=== PATIENT | male | born 1965 | race Caucasian/White ===

== ENCOUNTER → 2020-04-15 | Outpatient (CLI) | payer OTHER ==
[2020-04-15 17:06] LABS: ABSOLUTE NEUTROPHILS 5.7 thou/uL (1.4-8.2); BASOPHILS 0.7 % (0.0-2.0); EOSINOPHILS 2.1 % (0.0-3.0); HEMATOCRIT 39.1 % (42.0-52.0); HEMOGLOBIN 13.5 gm/dL (14.0-18.0); LYMPHOCYTES 26.8 % (24.0-44.0); MCH 32.4 pg (26.0-34.0); MCHC 34.5 g/dL (28.0-37.0); MONOCYTES 7.5 % (1.0-8.0); PLATELET COUNT 343 thou/uL (150-400); POLYS 62.9 % (36.0-66.0); RBC 4.16 mil/uL (4.50-6.00); RDW 14.9 % (10.5-14.5); WBC 9.1 thou/uL (4.0-11.0)
[2020-04-15 17:22] LABS: ALBUMIN 3.4 g/dL (3.4-5.0); CALCIUM 8.9 mg/dL (8.5-10.1); CREATININE 1.1 mg/dL (0.7-1.3); POTASSIUM 4.1 mmol/L (3.5-5.1); TOTAL BILIRUBIN 0.2 mg/dL (0.2-1.0); TOTAL PROTEIN 6.8 g/dL (6.4-8.2)
--- NOTE | 2020-04-16 08:11 | EKG ---
[facility] [place] [address] ELECTROCARDIOGRAM REPORT Name: ADAIR ALONZO Room #: REG [facility].#: [id number] Admission: 04/15/20 Attend Phys: Torres Tellez MD Discharge: Date of : 65 Report #: [id number] THIS REPORT FOR: cc: Krystina Garcia MD, Cora A. MD Couchonnal, Luis F. MD ~ THIS REPORT FOR: //name// [facility] Test Date: 2020-04-15 Test Time: 16:47:09 Pat Name: ADAIR ALONZO Department: Room: Gender: Retail Business Manager: Lisa BAEZ : 1965 Requested By: Torres Tellez Order Number: [id number] MD: Satish Rosenbaum Measurements Intervals [place] Rate: 69 P: -13 [place]: 122 QRS: -27 QRSD: 88 T: 1 QT: 398 QTc: 427 Interpretive Statements Sinus rhythm Borderline left axis deviation ST elev, probable normal early repol pattern Tall T, consider metabolic/ischemic abnrm No previous ECG available for comparison Electronically Signed On 04-16-2020 8:11:07 CDT by Satish Rosenbaum [email or web address] <ELECTRONICALLY SIGNED> By: Satish Rosenbaum MD 04/16/20810 46 46 Satish Rosenbaum MD /EPI
== END ==
LOC: CV 16:25 → LAB 16:25
PROVIDERS: ATTEND Otolaryngology Plastic Surgery within the Head & Neck
DX: I44.4 Left anterior fascicular block (principal); I49.8 Other specified cardiac arrhythmias; H71.91 Unspecified cholesteatoma, right ear; H72.2X1 Other marginal perforations of tympanic membrane, right ear; H74.32 Partial loss of ear ossicles; H74.03 Tympanosclerosis, bilateral; H90.A31 Mixed conductive and sensorineural hearing loss, unilateral, right ear with restricted hearing on the contralateral side; Z98.890 Other specified postprocedural states